=== PATIENT | female | born 1990 | race Caucasian/White ===

== ENCOUNTER 2022-12-26 10:06 | Outpatient (CLI) | payer OTHER, SELFPAY ==
[2022-12-26 17:14] LABS: Strep A DNA Probe* NOT DETECTED (Not Detectd)
== END 2022-12-26 10:07 | disposition home or self-care (01) ==
PROVIDERS: PCP Nurse Practitioner Family; Visit Provider Nurse Practitioner Family
DX: R21 Rash and other nonspecific skin eruption (principal); L28.2 Other prurigo
CPT/HCPCS: 87651